=== PATIENT | male | born 1945 | race Caucasian/White ===

== ENCOUNTER 2020-03-16 11:35 | Emergency (ER) | payer MEDICARE, OTHER, SELFPAY ==
[2020-03-16 11:37] VITALS: BP 138/85; PULSE 71; RESP 18; TEMP 36.6; O2SAT 99; BMI 27.8
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
[2020-03-16 13:34] VITALS: RESP 16
--- NOTE | 2020-03-16 13:35 | ED.RN ---
REVIEWED D/C INSTRUCTIONS, FOLLOW UP CARE, AND S/S THAT WOULD WARRANT A RETURN TO THE ED WITH PT. PT VERBALIZED AN UNDERSTANDING AND DENIES FURTHER QUESTIONS FOR THIS RN. PT SKIN P/W/D, RESP EVEN AND UNLABORED, PT A&O X 3, NO DISTRESS NOTED. PT AMBULATED OUT OF ED USING CRUTCHES.
== END 2020-03-16 13:36 | disposition home or self-care (01) ==
PROVIDERS: Emergency Provider Physician Assistant Medical
DX: S83.91XA Sprain of unspecified site of right knee, initial encounter (principal); F17.200 Nicotine dependence, unspecified, uncomplicated; V29.9XXA Motorcycle rider (driver) (passenger) injured in unspecified traffic accident, initial encounter
CPT/HCPCS: 73564; 99285